=== PATIENT | female | born 1975 | race Caucasian/White ===

== ENCOUNTER 2016-11-17 10:02 | Emergency (ER) | payer OTHER ==
[~2016-11-17] VITALS: Ht 162.6 cm; Wt 77.3 kg
[2016-11-17 10:05] VITALS: BP 157/90; PULSE 116; RESP 18; O2SAT 100
--- NOTE | 2016-11-17 10:12 | ED.REPORT ---
HPI-Dyspnea / Wheezing Date of Service Nov 17, 2016 ED Provider: Dr. Ambrose Pt is a 41 year old female with a hx of anxiety presenting to the ED complaining of SOB onset a few days ago, worsened when she woke up this morning. She reports that she woke up gasping for air and had continued SOB for an hour. Associated symptoms include a cough last week, dry mouth (for the past year, worsened today), dizziness, chest heaviness, palpitations, and nausea. Denies vomiting, diarrhea, LE swelling, or any other symptoms at this time. Nursing Notes Stated Complaint: SOB Chief Complaint: Respiratory Distress Nursing Notes Reviewed: Yes Allergies: Coded Allergies: No Known Allergies (Verified , 08/23/03) General Time Seen by MD: 10:12 Chief Complaint Shortness of breath Hx Obtained From: Patient Arrived By: Walk-in Sudden in Onset?: Yes Onset Occurred: Just prior to arrival Symptom Duration: Since onset Quality: Heaviness Radiation: : Chest left: Chest right Severity: Current: Mild Severity: Maximum: Mild Recent Healthcare: No recent doctor visit, No recent hospitalization Similar Sx Previous: No Past Medical History Past Medical History Anxiety Denies: Cancer Past Surgical History denies Family History Father of heart attack at 42 Smoking History Never Smoker Social History Alcohol Use: "Social" Drug Use: Denies drug use Ambulatory Status Independent Review of Systems Respiratory: Reports: Non-productive cough, Shortness of breath Cardiovascular: Reports: Chest pain, Palpitations Musculoskeletal: Denies: Extremity swelling Complete sys rev & neg: except as marked. GI: Reports: Nausea, Denies: Diarrhea, Vomiting Neurologic: Reports: Dizziness Physical Exam Initial Vital Signs Vital Signs (First) Date Time Temp Pulse Resp B/P Pulse Ox O2 Delivery O2 Flow Rate FiO2 11/17/16 10:05 36.7 116 18 157/90 100 11/17/16 12:51 Room Air Initial VS: Reviewed Head / Eyes: Atraumatic, Normocephalic, PERRL ENT: Mucous membranes moist, Conjunctiva normal, No scleral icterus Abdomen / GI: Soft, Non-tender, No guarding, No rebound, No distention Extremities: Vascular intact, Neuro intact, No swelling, No tenderness Skin: Warm, Dry, No cyanosis Neurologic: Alert, Oriented, Nonfocal Psychiatric: Mood/affect normal, Behavior normal, Normal thought content General/Constitutional: Awake, Alert Distress / Hydration: Positive: Distress mild Neck: Atraumatic, Supple Respiratory / Chest: Breath sounds NL, Breath sounds = bilat, No respiratory distress, No rales, No rhonchi, No wheezing, No retractions, No stridor Cardiovascular: Regular rhythm, Heart sounds NL Heart Rate / Rhythm: Positive: Tachycardia Lower Extremity / Pelvis / MS: No edema Interpretation & Diagnostics Interpretation & Diagnostics: CT ABDOMEN AND PELVIS IV CONTRAST: IMPRESSION: 1. Bowel appears normal, stomach nondistended. 2. Appendicolith is present, no evidence of appendicitis. 3. Fibroid uterus. Dictated by: Tremaine Lowery M.D. on 11/17/2016 at 12:58 CT ANGIO CHEST PE: IMPRESSION: 1. Exam is negative for pulmonary embolic disease. 2. No acute cardiopulmonary abnormality. Dictated by: Tremaine Lowery M.D. on 11/17/2016 at 12:55 Lab Results Interpretation Result Diagram: 11/17/16 1032 11/17/16 1032 Test 11/17/16 10:32 11/17/16 12:42 White Blood Count 8.3th/mm3 (3.8-10.1) Red Blood Count 4.73mil/mm3 (3.90-5.20) Hemoglobin 13.1g/dL (12.0-15.6) Hematocrit 38.8% (35.0-46.0) Mean Corpuscular Volume 82.0fL (81-100) Mean Corpuscular Hemoglobin 27.7pg (27.0-35.0) Mean Corpuscular Hemoglobin Concent 33.8% (32.0-37.0) Red Cell Distribution Width 13.6% (12.3-15.4) Platelet Count 326bil/L (150-400) Neutrophils (%) (Auto) 50.1% (40-74) Lymphocytes (%) (Auto) 36.6% (14-46) Monocytes (%) (Auto) 9.1% (4-12) Eosinophils (%) (Auto) 3.6% (0-5) Basophils (%) (Auto) 0.5% (0-3) Prothrombin Time 10.1sec (8.1-12.5) Prothromb Time International Ratio 0.95ratio Activated Partial Thromboplast Time 25.8sec (22.8-33.0) D-Dimer < 0.50mg/L FEU (<0.50) Sodium Level 141mEq/L (134-144) Potassium Level 3.5mEq/L (3.5-5.2) Chloride Level 104mEq/L (97-108) Carbon Dioxide Level 21mmol/L (18-29) Blood Urea Nitrogen 9mg/dL (6-24) Creatinine 0.64mg/dL (0.57-1.00) Estimat Glomerular Filtration Rate 147mL/min (>59) Glucose Level 143mg/dL (60-99) Calcium Level 9.1mg/dL (8.5-10.1) Magnesium Level 2.3mg/dL (1.6-2.6) Total Bilirubin 0.2mg/dL (0.0-1.2) Aspartate Amino Transf (AST/SGOT) 21U/L (0-50) Alanine Aminotransferase (ALT/SGPT) 16U/L (0-32) Alkaline Phosphatase 46U/L (25-150) Pro-B-Type Natriuretic Peptide 64.31pg/mL (0-130) Total Protein 7.5g/dL (6.4-8.4) Albumin 4.2g/dL (3.4-5.0) Hold Santiago Top Tube Received (Received) Troponin T < 0.010ug/L (0.0-0.011) ECG Interpretation ECG Interpretation: Sinus tachycardia at rate of 104. Time: 10:39 Interpreted by: ED physician ECG Interpretation: Sinus tachycardia at 127. Time: 10:50 Interpreted by: ED physician X-Ray Chest Interpretation Chest Xray Interpretation: IMPRESSION: Patchy bibasilar opacities. This could reflect multifocal low-grade aspiration or atelectasis versus (atypical) pneumonia. Please correlate clinically. Dictated by: Anurag Morgan M.D. on 11/17/2016 at 11:37 View: Portable, 1 view Interpretation / Wet Read by: Interpret - Radiologist Re-Eval/Medical Decision Med Decision/Clinical Course Vital signs have normalized, imaging and laboratory evaluation lan show an obvious abnormality. Patient is feeling better after Ativan. No obvious life-threatening pathology is identified. However given her family history, I do strongly recommend that she follow-up closely as an outpatient for repeat evaluation. The patient fully endorses that she has had anxiety since a young child and endorses that this may be the cause of her symptoms today. However, she again is strongly encouraged to have close outpatient follow-up. Return precautions given. Re-Evaluation/Progress #1: Time of Eval: 10:46 Patient Status: Condition improved Re-Evaluation/Progress Note: Pt feels chest tightness after receiving Nitro, and has a HR of 147, BP of 163/101. She denies any lightheadedness currently. Re-Evaluation/Progress #2: Time of Eval: 10:50 Patient Status: Condition improved Re-Evaluation/Progress Note: Performed repeat EKG. Pt tachycardic at 127. Re-Evaluation/Progress #3: Time of Eval: 12:04 Patient Status: Condition improved Re-Evaluation/Progress Note: Discussed radiology results and plan for CT. Re-Evaluation/Progress #4: Time of Eval: 13:32 Patient Status: Condition improved Re-Evaluation/Progress Note: Discussed CT results and plan for discharge. Advised the pt to follow up with a primary care doctor. Counseled Regarding: Diagnosis, Lab results, Need for follow-up, When/why to return to ED Discharge & Departure Impression: Primary Impression: Dyspnea Disposition: Home Discharge Condition All VS Reviewed: Yes Condition: Improved Additional Instructions: All of your exam findings are normal while in the ER today. It does not appear that you are having a heart attack or a pulmonary embolism. Your abdominal CT does not show any signs of infection or tumor. Findings a primary care doctor and had a full physical done in the next week. Return to the ER if you develop recurrent chest pain or severe shortness of breath or any other concerns. [facility] Liz Attestation Portions of this note were transcribed by Edith Childs. I, Dr. Ambrose personally performed the history, physical exam and medical decision-making; I reviewed and confirmed the accuracy of the information in the transcribed note. Signed by: Liz Obregon, 11/17/16 at 1350. copies to: [facility]; [facility] Stew Ambrose DO Nov 17, 2016 10:12 EDITH CHILDS Nov 17, 2016 10:20
[2016-11-17] MEDS ORDERED: Ondansetron 2 mg/mL 2 mL Inj IVPUSH ONE (10:20)
[2016-11-17 10:40] LABS: BASOPHILS % (AUTO) 0.5 % (0-3); EOSINOPHILS % (AUTO) 3.6 % (0-5); MONOCYTES % (AUTO) 9.1 % (4-12); Mean Corpuscular Hemoglobin 27.7 pg (27.0-35.0); NEUTROPHILS % (AUTO) 50.1 % (40-74); Platelet Count 326 bil/L (150-400)
[2016-11-17 11:03] LABS: D-Dimer < 0.50 mg/L FEU (<0.50); INR 0.95 ratio
[2016-11-17 11:08] LABS: TROPONIN T 0.01 ug/L (0.0-0.011)
[2016-11-17 11:19] LABS: Magnesium 2.3 mg/dL (1.6-2.6)
[2016-11-17] MEDS ORDERED: LidocaineVisc 2%:Antacid 1:1 10 mL Syringe PO SCH (11:20)
[2016-11-17] MEDS ORDERED: 0.9% Sodium Chloride 1,000 ML IV ONE (11:20)
--- NOTE | 2016-11-17 11:41 | DRSVH ---
PROCEDURE: X-RAY CHEST ONE VIEW, PORTABLE ([id number]) INDICATIONS: dyspnea, epigastric discomfort TECHNIQUE: One view of the chest was acquired. COMPARISON: None. FINDINGS: Surgical changes and devices: None. Lungs and pleura: No pleural effusions or pneumothorax. There are patchy bibasilar opacities. Mediastinum: Mediastinal contours appear normal. Heart size is normal. Bones and chest wall: No suspicious bony lesions. Overlying soft tissues appear unremarkable. IMPRESSION: Patchy bibasilar opacities. This could reflect multifocal low-grade aspiration or atelect asis versus (atypical) pneumonia. Please correlate clinically. Dictated by: Anurag Morgan M.D. on 11/17/2016 at 11:37 Approved by: Anurag Morgan M.D. on 11/17/2016 at 11:39
[2016-11-17 12:51] VITALS: BP 138/91; PULSE 92; RESP 20; O2SAT 99
--- NOTE | 2016-11-17 13:00 | DRSVH ---
PROCEDURE: CT ANGIO CHEST PULMONARY EMBOLISM ([id number]) INDICATIONS: dyspnea, tachycardia TECHNIQUE: After the administration of intravenous contrast, 2 mm thick sections acquired from the pulmonary api audie to the posterior costophrenic angles. 3-dimensional maximum intensity projection (MIP) coronal a nd sagittal reformats were then acquired through the thorax. For radiation dose reduction, the follo wing was used: automated exposure control, adjustment of mA and/or kV according to patient size. COMPARISON: None. FINDINGS: Image quality: Excellent. Pulmonary arteries: Pulmonary arteries are normal in size, and demonstrate no intraluminal filling d efects to suggest central pulmonary embolism. Lungs and pleura: Lungs are clear. No pleural effusions or pneumothorax. Central and peripheral ai rways are patent. Mediastinum: Heart size is normal, without pericardial effusion. No mediastinal or hilar adenopathy . Thoracic aorta is normal in caliber and enhancement. Esophagus is normal in caliber, without hiat al hernia. Bones and chest wall: No suspicious bony lesions. Ribs and thoracic spine appear intact throughout. Thyroid gland appears normal. No axillary or supraclavicular adenopathy. Abdomen: Visualized upper abdominal solid organs appear normal in the early arterial phase of enhanc ement. IMPRESSION: 1. Exam is negative for pulmonary embolic disease. 2. No acute cardiopulmonary abnormality. Dictated by: Tremaine Lowery M.D. on 11/17/2016 at 12:55 Approved by: Tremaine Lowery M.D. on 11/17/2016 at 12:58
--- NOTE | 2016-11-17 13:06 | DRSVH ---
PROCEDURE: CT ABDOMEN AND PELVIS WITH CONTRAST ([id number]) INDICATIONS: epigastric pain, distention TECHNIQUE: After the administration of intravenous contrast, 5 mm thick sections acquired from the diaphragm to the symphysis. 5 mm coronal and sagittal reformats were acquired. For radiation dose reduction, the following was used: automated exposure control, adjustment of mA and/or kV according to patient siz e. COMPARISON: None. FINDINGS: Image quality: Excellent. ABDOMEN: Lung bases: Lung bases are clear. Heart size is normal. Solid organs: Liver and spleen are normal in size and enhancement. Gallbladder appears normal. Ranjeet iary system is non dilated. Pancreas enhances normally. No adrenal nodules. Kidneys demonstrate no rmal size and enhancement, without hydronephrosis. There is a small, indeterminate hypodensity within the posterior lower pole of the left kidney, likely renal cyst. Peritoneum and bowel: Bowel loops demonstrate normal wall thickness and caliber. Appendicolith is pr esent. No periappendiceal inflammation. No free fluid or air. Nodes and vessels: No retroperitoneal or mesenteric adenopathy by size criteria. Aorta and inferior vena cava are normal in size. Miscellaneous: No ventral hernias. PELVIS: Genitourinary: Bladder wall thickness is normal. The uterus is enlarged, lobulated and appears to c ontain a 7 cm isodense fibroid in the right lower uterine segment. Trace free fluid in the posterior cul-de-sac. Adnexa appear unremarkable. Miscellaneous: No inguinal hernias or adenopathy. Bones: No suspicious bony lesions. No vertebral body compression fractures. IMPRESSION: 1. Bowel appears normal, stomach nondistended. 2. Appendicolith is present, no evidence of appendicitis. 3. Fibroid uterus. Dictated by: Tremaine Lowery M.D. on 11/17/2016 at 12:58 Approved by: Tremaine Lowery M.D. on 11/17/2016 at 13:04
== END 2016-11-17 13:45 | disposition home or self-care (01) ==
LOC: SED 10:02
DX: R06.00 Dyspnea, unspecified (principal); F41.9 Anxiety disorder, unspecified
CPT/HCPCS: 36415; 71010; 71275; 74177; 80053; 83735; 83880; 84484; 85025; 85378; 85610; 85730; 93005; 96361; 96374; 96375; 99284; J2060; J2270; J2405; J7030; Q9967